=== PATIENT | male | born 1980 | race Caucasian/White ===

== ENCOUNTER 2019-09-26 14:17 | Emergency (ER) | payer OTHER ==
[2019-09-26] MEDS ORDERED: SODIUM CHLORIDE 0.9% 1,000 ML IV STA ×2 (15:05)
--- NOTE | 2019-09-26 15:51 | ED ---
General Adult HPI - General Chief complaint: Recheck/Abnormal Lab/Rx Stated complaint: SOB/lightheaded Time Seen by Provider: 09/26/19 14:43 Source: patient, RN notes reviewed, old records reviewed Mode of arrival: ambulatory Limitations: no limitations - History of Present Illness Initial comments: French is a 39-year-old male with a history of primary cirrhosis who presents today with complaints of worsening symptoms of abdominal discomfort, concerns for her lower extremity swelling, elevated blood pressure shortness of breath. He was at this is all related to his cirrhosis. Patient states he is feeling somewhat lightheaded also complained of mild headache. Patient reports he has not seen a doctor in over 8 years. But decided to have all of his symptoms evaluated emergency department after he felt somewhat lightheaded and short of breath. Patient states that he has no associated chest pain at this time denies any primary abdominal pain. - Related Data Allergies Allergy/AdvReac Type Severity Reaction Status Date / Time Penicillins Allergy Swelling Verified 09/26/19 14:28 Review of Systems ROS Statement: Those systems with pertinent positive or pertinent negative responses have been documented in the HPI. ROS Other: All systems not noted in ROS Statement are negative. Past Medical History Additional Past Medical History / Comment(s): billiary colonary liver cirrhosis History of Any Multi-Drug Resistant Organisms: None Reported Past Surgical History: No Surgical Hx Reported Past Psychological History: No Psychological Hx Reported Smoking Status: Never smoker Past Alcohol Use History: None Reported Past Drug Use History: None Reported General Exam - General Exam Comments Initial Comments: well appearing 39 year old male, no distress. Limitations: no limitations General appearance: alert, in no apparent distress Head exam: Present: atraumatic, normocephalic, normal inspection Eye exam: Present: normal appearance, PERRL, EOMI. Absent: scleral icterus, conjunctival injection, periorbital swelling ENT exam: Present: normal exam, mucous membranes moist Neck exam: Present: normal inspection. Absent: tenderness, meningismus, lymphadenopathy Respiratory exam: Present: normal lung sounds bilaterally. Absent: respiratory distress, wheezes, rales, rhonchi, stridor Cardiovascular Exam: Present: regular rate, normal rhythm, normal heart sounds. Absent: systolic murmur, diastolic murmur, rubs, gallop, clicks GI/Abdominal exam: Present: soft Extremities exam: Present: normal inspection, full ROM, normal capillary refill. Absent: tenderness, pedal edema, joint swelling, calf tenderness Back exam: Present: normal inspection Neurological exam: Present: alert, oriented X3, CN II-XII intact Course Vital Signs 09/26/19 09/26/19 09/26/19 14:23 15:59 17:30 Temperature 98.1 F 98.7 F Pulse Rate 72 55 L 54 L Respiratory 16 18 16 Rate Blood Pressure 117/69 130/76 123/76 O2 Sat by Pulse 99 100 97 Oximetry Medical Decision Making - Medical Decision Making 39 year old male with concern for multiple complaints. Patient believes he is in cirrhosis and complains of edema. Patient has no ascites, no pitting edema, lungs are clear. Blood pressure is normal. Patient seems convinced he is suffering from cirrhosis and jaundice. Patient labs are normal, bilirubin is normal. Patient Cxr shows possible pulmonary nodule, discussed repeat cxr in a few months. patient advised physical exam findings and labs are normal. Discusse d patient needs to see PCP. Discussed return parameters. - Lab Data Result diagrams: 09/26/19 15:56 09/26/19 15:56 Lab Results 09/26/19 09/26/19 09/26/19 Range/Units 15:56 15:56 15:56 WBC 4.6 (3.8-10.6) k/uL RBC 5.15 (4.30-5.90) m/uL Hgb 15.6 (13.0-17.5) gm/dL Hct 48.5 (39.0-53.0) % MCV 94.1 (80.0-100.0) fL MCH 30.4 (25.0-35.0) pg MCHC 32.2 (31.0-37.0) g/dL RDW 12.7 (11.5-15.5) % Plt Count 148 L (150-450) k/uL Neutrophils % 71 % Lymphocytes % 22 % Monocytes % 4 % Eosinophils % 2 % Basophils % 0 % Neutrophils # 3.3 (1.3-7.7) k/uL Lymphocytes # 1.0 (1.0-4.8) k/uL Monocytes # 0.2 (0-1.0) k/uL Eosinophils # 0.1 (0-0.7) k/uL Basophils # 0.0 (0-0.2) k/uL PT 10.4 (9.0-12.0) sec INR 1.0 (<1.2) Sodium 139 (137-145) mmol/L Potassium 4.8 (3.5-5.1) mmol/L Chloride 103 (98-107) mmol/L Carbon Dioxide 29 (22-30) mmol/L Anion Gap 7 mmol/L BUN 11 (9-20) mg/dL Creatinine 0.80 (0.66-1.25) mg/dL Est GFR (CKD-EPI)AfAm >90 (>60 ml/min/1.73 sqM) Est GFR (CKD-EPI)NonAf >90 (>60 ml/min/1.73 sqM) Glucose 90 (74-99) mg/dL Calcium 9.8 (8.4-10.2) mg/dL Total Bilirubin 1.1 (0.2-1.3) mg/dL AST 30 (17-59) U/L ALT 26 (4-49) U/L Alkaline Phosphatase 60 (38-126) U/L Troponin I (0.000-0.034) ng/mL Total Protein 7.5 (6.3-8.2) g/dL Albumin 4.9 (3.5-5.0) g/dL Urine Color Urine Appearance (Clear) Urine pH (5.0-8.0) Ur Specific Dawn (1.001-1.035) Urine Protein (Negative) Urine Glucose (UA) (Negative) Urine Ketones (Negative) Urine Blood (Negative) Urine Nitrite (Negative) Urine Bilirubin (Negative) Urine Urobilinogen (<2.0) mg/dL Ur Leukocyte Esterase (Negative) 09/26/19 09/26/19 Range/Units 15:56 17:04 WBC (3.8-10.6) k/uL RBC (4.30-5.90) m/uL Hgb (13.0-17.5) gm/dL Hct (39.0-53.0) % MCV (80.0-100.0) fL MCH (25.0-35.0) pg MCHC (31.0-37.0) g/dL RDW (11.5-15.5) % Plt Count (150-450) k/uL Neutrophils % % Lymphocytes % % Monocytes % % Eosinophils % % Basophils % % Neutrophils # (1.3-7.7) k/uL Lymphocytes # (1.0-4.8) k/uL Monocytes # (0-1.0) k/uL Eosinophils # (0-0.7) k/uL Basophils # (0-0.2) k/uL PT (9.0-12.0) sec INR (<1.2) Sodium (137-145) mmol/L Potassium (3.5-5.1) mmol/L Chloride (98-107) mmol/L Carbon Dioxide (22-30) mmol/L Anion Gap mmol/L BUN (9-20) mg/dL Creatinine (0.66-1.25) mg/dL Est GFR (CKD-EPI)AfAm (>60 ml/min/1.73 sqM) Est GFR (CKD-EPI)NonAf (>60 ml/min/1.73 sqM) Glucose (74-99) mg/dL Calcium (8.4-10.2) mg/dL Total Bilirubin (0.2-1.3) mg/dL AST (17-59) U/L ALT (4-49) U/L Alkaline Phosphatase (38-126) U/L Troponin I <0.012 (0.000-0.034) ng/mL Total Protein (6.3-8.2) g/dL Albumin (3.5-5.0) g/dL Urine Color Light Yellow Urine Appearance Clear (Clear) Urine pH 7.5 (5.0-8.0) Ur Specific Dawn 1.011 (1.001-1.035) Urine Protein Negative (Negative) Urine Glucose (UA) Negative (Negative) Urine Ketones Negative (Negative) Urine Blood Negative (Negative) Urine Nitrite Negative (Negative) Urine Bilirubin Negative (Negative) Urine Urobilinogen <2.0 (<2.0) mg/dL Ur Leukocyte Esterase Negative (Negative) 09/26/19 15:53 EKG shows sinus rhythm with marked sinus arrhythmia, otherwise normal EKG. Ventricular rate of 64 bpm. Verbal is 156 no seconds. Curious duration is 96 ms. QT QTc is 394/406 ms. - Radiology Data Radiology results: report reviewed Right midlung peripheral density may be artifactual related to superimposed structures are all benign nodule. Short-term follow-up chest x-ray could be performed to assess of the finding persist. Redemonstrated CT thorax would be remnants recommended. Disposition Clinical Impression: Lightheaded, Pulmonary nodule seen on imaging study Disposition: HOME SELF-CARE Condition: Good Instructions (If sedation given, give patient instructions): Near Syncope (ED) Additional Instructions: Please follow up with family doctor if symptoms have not improved over the next two days. Please return to the emergency room if your symptoms increase or worsen or for any other concerns. Is patient prescribed a controlled substance at d/c from ED?: No Referrals: None,Stated [Primary Care Provider] - 1-2 days Thee Vasquez [STAFF PHYSICIAN] - 1-2 days Jorge Ellis MD [STAFF PHYSICIAN] - 1-2 days Time of Disposition: 17:20
[2019-09-26 16:15] LABS: Basophils % (A) 0 %; Eosinophils # (A) 0.1 k/uL (0-0.7); Eosinophils % (A) 2 %; HCT 48.5 % (39.0-53.0); HGB 15.6 gm/dL (13.0-17.5); Lymphocytes % (A) 22 %; MCH 30.4 pg (25.0-35.0); MCHC 32.2 g/dL (31.0-37.0); MCV 94.1 fL (80.0-100.0); Mean Platelet Volume 8.4; Monocytes # (A) 0.2 k/uL (0-1.0); Monocytes % (A) 4 %; Neutrophils # (A) 3.3 k/uL (1.3-7.7); Neutrophils % (A) 71 %; Platelet Count 148 k/uL (150-450); RBC 5.15 m/uL (4.30-5.90); RDW 12.7 % (11.5-15.5); WBC 4.6 k/uL (3.8-10.6)
--- NOTE | 2019-09-26 16:17 | XR ---
EXAMINATION TYPE: XR chest 2V DATE OF EXAM: 09/26/2019 COMPARISON: NONE HISTORY: Shortness of breath, lightheadedness, abnormal laboratory values. TECHNIQUE: Frontal and lateral views of the chest are obtained. FINDINGS: There is no focal air space opacity, pleural effusion, or pneumothorax seen. There is a 2 mm nodular density along the lateral right midlung could be artifactual and related to superimposed structures. Short-term follow-up chest radiograph could be performed for further evaluation. Bilatera l nipple shadows overlie the lower lungs. The cardiac silhouette size is within normal limits. The osseous structures are intact. IMPRESSION: No acute cardiopulmonary process. Right midlung rounded 2 mm peripheral density may be a rtifactual and related to superimposed structures or pulmonary nodule. Short-term follow-up chest x-r ay could be performed to assess if this finding persists. If redemonstrated CT thorax would be recomm ended.
[2019-09-26 16:20] LABS: Prothrombin Time 10.4 sec (9.0-12.0)
[2019-09-26 16:36] LABS: ALT 26 U/L (4-49); AST 30 U/L (17-59); African American GFR (CKD) >90 (>60 ml/min/1.73 sqM); Albumin 4.9 g/dL (3.5-5.0); Alkaline Phosphatase 60 U/L (38-126); Anion Gap 7 mmol/L; Blood Urea Nitrogen 11 mg/dL (9-20); Calcium 9.8 mg/dL (8.4-10.2); Carbon Dioxide 29 mmol/L (22-30); Chloride 103 mmol/L (98-107); Glucose 90 mg/dL (74-99); Non-African American GFR(CKD) >90 (>60 ml/min/1.73 sqM); Potassium 4.8 mmol/L (3.5-5.1); Sodium 139 mmol/L (137-145); Total Bilirubin 1.1 mg/dL (0.2-1.3); Total Protein 7.5 g/dL (6.3-8.2)
[2019-09-26 17:18] LABS: Appearance,Urine Clear (Clear); Bilirubin,Urine Negative (Negative); Blood,Urine Negative (Negative); Color,Urine Light Yellow; Glucose,Urine (UA) Negative (Negative); Ketones,Urine Negative (Negative); Leukocyte Esterase,Urine Negative (Negative); Nitrite,Urine Negative (Negative); PH, Urine 7.5 (5.0-8.0); Protein,Urine Negative (Negative); Specific Gravity,Urine 1.011 (1.001-1.035); Urobilinogen,Urine <2.0 mg/dL (<2.0)
[2019-09-26 17:31] VITALS: BP 123/76; PULSE 54; RESP 16; TEMP 98.7
== END 2019-09-26 17:31 | disposition home or self-care (01) ==
LOC: EC 14:17
DX: R91.1 Solitary pulmonary nodule (principal); R42 Dizziness and giddiness; K74.5 Biliary cirrhosis, unspecified; R06.02 Shortness of breath; R60.0 Localized edema; R51 Headache; R03.0 Elevated blood-pressure reading, without diagnosis of hypertension; Z88.0 Allergy status to penicillin
CPT/HCPCS: 36415; 71046; 80053; 81003; 84484; 85025; 85610; 93005; 96360; 96361; 99285